=== PATIENT | male | born 1970 | race Caucasian/White ===

== ENCOUNTER → 2017-07-06 | Outpatient (REF) | payer BC ==
[~2017-07-06] MED LIST: ACET50TA PO; ADVI200T PO; CITA40TA PO; CLON2TAB PO; NICO4LOZ8 PO; PERCOCET PO; WELL100T PO
[2017-07-06 13:37] LABS: ALBUMIN 3.9 GM/DL (3.2-5.2); ALBUMIN/GLOBULIN RATIO 0.95 (1.00-1.93); ALKALINE PHOSPHATASE 71 U/L (45-117); ALT/SGPT 59 U/L (12-78); ANION GAP 8 MEQ/L (8-16); AST/SGOT 30 U/L (15-37); BILIRUBIN,TOTAL 0.5 MG/DL (0.2-1.0); BLOOD UREA NITROGEN 12 MG/DL (7-18); CALCIUM LEVEL 9.1 MG/DL (8.5-10.1); CARBON DIOXIDE LEVEL 28 MEQ/L (21-32); CHLORIDE LEVEL 103 MEQ/L (98-107); CHOLESTEROL LEVEL 215 MG/DL (<200); CREATININE FOR GFR 0.77 MG/DL (0.70-1.30); GLOMERULAR FILTRATION RATE > 60.0 (>60); GLUCOSE, FASTING 91 MG/DL (70-105); SODIUM LEVEL 139 MEQ/L (136-145); TRIGLYCERIDES LEVEL 237 MG/DL (<150)
== END ==
LOC: M LABDRAW1 11:12
PROVIDERS: ATTEND Emergency Medicine
DX: I10 Essential (primary) hypertension (principal); E78.2 Mixed hyperlipidemia

== ENCOUNTER → 2018-02-03 | Outpatient (REF) | payer BC | LOC: M SFHCLERA 13:29 | DX: J02.9 Acute pharyngitis, unspecified (principal) ==

== ENCOUNTER → 2018-04-23 | Outpatient (REF) | payer BC | LOC: M SFHCLERA 12:11 | DX: J00 Acute nasopharyngitis [common cold] (principal) | CPT/HCPCS: 87880 ==

== ENCOUNTER → 2020-12-10 | Outpatient (CLI) | payer BC ==
[~2020-12-10] MED LIST changes: -ACET50TA PO; +MAPA500T17 PO; +OXYC1TAB23 PO; -PERCOCET PO
[2020-12-10 13:36] LABS: ALT/SGPT 46 U/L (12-78); BILIRUBIN,TOTAL 0.5 MG/DL (0.2-1.0); BLOOD UREA NITROGEN 13 MG/DL (7-18); CALCIUM LEVEL 9.3 MG/DL (8.5-10.1); CARBON DIOXIDE LEVEL 29 MEQ/L (21-32); CHLORIDE LEVEL 104 MEQ/L (98-107); CHOLESTEROL LEVEL 238 MG/DL (<200); CHOLESTEROL RISK RATIO 5.804 (<5); GLOMERULAR FILTRATION RATE > 60.0 (>60); GLUCOSE, FASTING 102 MG/DL (70-100); HDL CHOLESTEROL 41 MG/DL (>40); LDL CHOLESTEROL 149 MG/DL (<100); NON-HDL-C 197 MG/DL; POTASSIUM SERUM 4.6 MEQ/L (3.5-5.1); SODIUM LEVEL 139 MEQ/L (136-145); TOTAL PROTEIN 7.2 GM/DL (6.4-8.2); TRIGLYCERIDES LEVEL 239 MG/DL (<150)
== END ==
LOC: M WUC 10:16
PROVIDERS: ATTEND Nurse Practitioner Family
DX: Z00.00 Encounter for general adult medical examination without abnormal findings (principal)

== ENCOUNTER → 2021-08-19 | Outpatient (CLI) | payer BC ==
[2021-08-19 12:40] LABS: ALBUMIN 3.7 GM/DL (3.2-5.2); ALT/SGPT 56 U/L (12-78); BILIRUBIN,TOTAL 0.5 MG/DL (0.2-1.0); BLOOD UREA NITROGEN 9 MG/DL (7-18); CALCIUM LEVEL 8.7 MG/DL (8.5-10.1); CARBON DIOXIDE LEVEL 28 MEQ/L (21-32); CHLORIDE LEVEL 108 MEQ/L (98-107); CHOLESTEROL LEVEL 144 MG/DL (<200); CHOLESTEROL RISK RATIO 3.272 (<5); GLOMERULAR FILTRATION RATE > 60.0 (>56); GLUCOSE, FASTING 103 MG/DL (70-100); HDL CHOLESTEROL 44 MG/DL (>40); LDL CHOLESTEROL 73 MG/DL (<100); NON-HDL-C 100 MG/DL; POTASSIUM SERUM 4.5 MEQ/L (3.5-5.1); SODIUM LEVEL 141 MEQ/L (136-145); TOTAL PROTEIN 7.5 GM/DL (6.4-8.2); TRIGLYCERIDES LEVEL 137 MG/DL (<150)
== END ==
LOC: M WUC 10:20
PROVIDERS: ATTEND Nurse Practitioner Family
DX: E78.2 Mixed hyperlipidemia (principal)

== ENCOUNTER → 2021-09-10 | Outpatient (CLI) | payer BC ==
[~2021-09-10] MED LIST changes: +ASPI81TA26 PO; +ATOR40TA75 PO; +LISI10TA22 PO; +METO200T28 PO
== END ==
LOC: M LABSMTC 11:01
PROVIDERS: ATTEND Anesthesiology
DX: Z01.818 Encounter for other preprocedural examination (principal); Z11.52 Encounter for screening for COVID-19

== ENCOUNTER 2021-09-15 09:40 | Day surgery (SDC) | payer BC ==
[~2021-09-15] VITALS: Ht 177.8 cm; Wt 126.6 kg
[~2021-09-15 09:40] MED LIST changes: +NS 1,000 ML IV ONE
--- OUTSIDE RECORDS SUMMARY | 2021-09-15 09:46 | CCD | Continuity of Care Document ---
Author Author Tee CARRERA [facility] Organization Unknown Address [address] [place] [address] Phone [phone] Care Team Providers Care Pharmacy Technician Name Role Phone Melisa Aquino M.D. AUTM [phone] Augusto Ledezma M.D. AUTM [phone] [facility] AUTM [phone] Problems Active Problems Provider Date Essential hypertension Tee Dobbins M.D. Onset: Mixed hyperlipidemia Tee Dobbins M.D. Onset: 12/01 Social History Type Date Description Comments Sex Unknown Tobacco Use Start: Unknown End: Unknown denies cigarette use Tobacco Use Start: Unknown Never Used Smokeless Tobacco ETOH Use Denies alcohol use Tobacco Use Start: Unknown Patient has never smoked Recreational Drug Use Formerly used Marijuana sp oradically Smoking Status Reviewed: 07/22/21 Patient has never smoked Exercise Type/Frequency Exercises sporadically Tattoo/Piercing Tattoo Sun Exposure Use less than 15 SPF Seat Belt/Car Seat Always uses seat belt Smoke Alarms Yes Smoke Alarms Carbon Monoxide Detector: Yes Allergies, Adverse Reactions, Alerts Description No Known Drug Allergies Medications Active Medications SIG Qnty Indications Ordering Provide r Date Tramadol HCL 50mg Tablets take 1 tablet by mouth every 6 hours as needed for pain 28tabs M17.0 Thania Carrera FNP 07/22/2021 Atorvastatin Calcium 40mg Tablets take one tablet by mouth every day for cholesterol 90tabs Thania Franco ch, FNP 12/11/2020 Metoprolol Succinate ER 200mg Tablets ER 24HR one tablet once a day 90tabs I10 Cara Martinez M.D. 06/24/2019 Lisinopril 10mg Tablets take 1 tablet by mouth in the morning for blood pressure 90tabs I10 Thania Carrera FNP 09/10/2015 Aspirin Ec Lo-Dose 81mg Tablets DR 1 po qd 100tabs 786.51 Tee Dobbins M.D. 11/01 Immunizations CPT Code Status Date Vaccine Lot # [id number] Given 04/10/2021 Moderna Sars-(Co vid-19) vaccine, mRNA, LNP-S, PF, 100 mcg/ 0.5 mL [id number] Given 03/13/2021 Moderna Sars-(Co vid-19) vaccine, mRNA, LNP-S, PF, 100 mcg/ 0.5 mL [id number] Refused 07/22/2021 Influenza Virus Vaccine, Jonnie drivalent,multidose vial Vital Signs Date Vital Result Comment 07/22/2021 2:44pm BP Systolic 128 mmHg BP Diastolic 70 mmHg Heart Rate 75 /min Body Temperature 97.0 F Respiratory Rate 17 /min Height 70 inches 5'10" Weight 277.25 lb O2 % BldC Oximetry 98 % Peak Expiratory Flow Rate 539 Estimated Peak Flow Rate [place] Body Weight 166 lb BMI (Body Mass Index) 39.8 kg/m2 12/10/2020 9:32am BP Systolic 123 mmHg BP Diastolic 77 mmHg Heart Rate 67 /min Body Temperature 97.6 F Respiratory Rate 16 /min Height 70 inches 5'10" Weight 272.12 lb O2 % BldC Oximetry 98 % Peak Expiratory Flow Rate 541 Estimated Peak Flow Rate [place] Body Weight 166 lb BMI (Body Mass Index) 39.0 kg/m2 Results Description No Information Available Procedures Date Code Description Status 07/22/2021 26465 Office/Outpatient Established Lo w MDM 20-29 Min Completed Medical Devices Description No Information Available Encounters Type Date Location Provider Dx Diagnosis Office Visit 07/22/2021 2:45p Main Office Thania Carrera FNP M17.0 Bilateral primary osteoarthritis of knee E78.2 Mixed hyperlipidemia Assessments Date Code Description Provider 07/22/2021 M17.0 Bilateral primary osteoarthritis of knee Thania Carrera FNP 07/22/2021 E78.2 Mixed hyperlipidemia Maryan Carrera FNP Plan of Treatment 07/22/2021 - Thania Carrera FNP* M17.0 Bilateral primary osteoarthritis of knee* New Medication:* Tramadol HCL 50 mg - take 1 tablet by mouth every 6 hours as needed for pain * Comments:* left worse than right, using NSAIDS without relief. * E78.2 Mixed hyperlipidemia* Comments:* continue statin, recheck lipids Functional Status Functional Condition Comment Date Status Glasses Active Independent with all ADL's Activ e Independent with all IADL's Acti ve Mental Status Mental Condition Comment Date Status None Active Referrals Description No Information Available
--- OUTSIDE RECORDS SUMMARY | 2021-09-15 09:46 | CCD | Continuity of Care Document ---
Author Author Tee CARRERA [facility] Organization Unknown Address [address] [place] [address] Phone [phone] Care Team Providers Care Pill Packer Name Role Phone Melisa Aquino M.D. AUTM [phone] Augusto Ledezma M.D. AUTM [phone] [facility] AUTM [phone] Problems Active Problems Provider Date Essential hypertension [...] CPT Code Status Date Vaccine Lot # [id number] Given 04/10/2021 Moderna Sars-(Co vid-19) vaccine, mRNA, LNP-S, PF, 100 mcg/ 0.5 mL [id number] Given 03/13/2021 Moderna Sars-(Co vid-19) vaccine, mRNA, LNP-S, PF, 100 mcg/ 0.5 mL [id number] Refused 07/22/2021 Influenza Virus Vaccine, Jonnie drivalent,multidose vial Vital Signs Date Vital Result Comment 07/22/2021 2:44pm BP Systolic 128 mmHg BP Diastolic 70 mmHg Heart Rate 75 /min Body Temperature 97.0 F Respiratory Rate 17 /min Height 70 inches 5'10" Weight 277.25 lb O2 % BldC Oximetry 98 % Peak Expiratory Flow Rate 539 Estimated Peak Flow Rate [place] Body Weight 166 lb BMI (Body Mass Index) 39.8 kg/m2 12/10/2020 9:32am BP Systolic 123 mmHg BP Diastolic 77 mmHg Heart Rate 67 /min Body Temperature 97.6 F Respiratory Rate 16 /min Height 70 inches 5'10" Weight 272.12 lb O2 % BldC Oximetry 98 % Peak Expiratory Flow Rate 541 Estimated Peak Flow Rate [place] Body Weight 166 lb BMI (Body Mass Index) 39.0 kg/m2 Results Description No Information Available Procedures Date Code Description Status 07/22/2021 63553 Office/Outpatient Established Lo w MDM 20-29 Min [...]
--- OUTSIDE RECORDS SUMMARY | 2021-09-15 09:46 | CCD | Continuity of Care Document ---
Author Author Tee WALLS Organization Unknown Address [address], [address] [place] [address] Phone [phone] Care Team Providers Care Procurement Manager Name Role Phone Thania Carrera N.P.M [phone] Problems Active Problems Provider Date Essential hypertension Piotr Walls DO Onset: Social History Type Date Description Comments Sex Unknown ETOH Use Denies alcohol use Tobacco Use Start: Unknown Denies Smoking Recreational Drug Use Denies Drug Use Allergies, Adverse Reactions, Alerts Description No Known Drug Allergies Medications Active Medications SIG Qnty Indications Ordering Provide r Date Aspirin 81mg Tablets DR 1 [place] Unknown Lisinopril 10mg Tablets 1 by mouth every day Unknown Atorvastatin Calcium 40mg Tablets 1 by mouth every day Unknown Metoprolol Succinate ER 200mg Tablets ER 24HR 1 by mouth every day Unknown 0000/0 000 Immunizations Description No Information Available Vital Signs Date Vital Result Comment 07/29/2021 2:22pm BP Systolic 112 mmHg BP Diastolic 72 mmHg Body Temperature 98.3 F Height 70 inches 5'10" Weight 278.00 lb BMI (Body Mass Index) 39.9 kg/m2 [place] Body Weight 166 lb Weight 126.101 kg BSA (Body Surface Area) 2.40 m2 Results Description No Information Available Procedures Description No Information Available Medical Devices Description No Information Available Encounters Description No Information Available Assessments Date Code Description Provider 07/29/2021 Z12.11 Encounter for screening for yan gnant neoplasm of colon Piotr Walls DO Plan of Treatment Future Appointment(s):* 09/27/2021 10:30 am - JUAN Bruce at [facility] * 09/15/2021 11:10 am - Piotr Walls DO at [facility] 07/29/2021 - Piotr Walls DO* Z12.11 Encounter for screening for malignant neoplasm of colon* Comments:* 51 y/o male presents for screening colonoscopy. Risks and benefits include, but are not limited to, bleeding, infection, and perforation. He understands the risks, and elects to proceed with procedure. Functional Status Description No Information Available Mental Status Description No Information Available Referrals Refer to Reason for Referral Status Appt Date Piotr Walls D.O. SCHEDULE COLONOSCOPY Scheduled [address] [place] [id number] [phone]
--- OUTSIDE RECORDS SUMMARY | 2021-09-15 09:46 | CCD | Continuity of Care Document ---
Author Author Tee WALLS Organization Unknown Address [address] [place] [address] [address] [place] [address] Phone [phone] Care Team Providers Care Ux Engineer Name Role Phone SantoshjamirThania N.P. AUTM [phone] Problems Active Problems Provider Date Essential hypertension Piotr Walls DO Onset: Social History Type Date Description Comments Sex Unknown ETOH Use Denies alcohol use Tobacco Use Start: Unknown Denies Smoking Recreational Drug Use Denies Drug Use Allergies, Adverse Reactions, Alerts Description No Known Drug Allergies Medications Active Medications SIG Qnty Indications Ordering Provide r Date Aspirin 81mg Tablets DR Santana hernández day Unknown Lisinopril 10mg Tablets 1 by mouth every day Unknown Atorvastatin Calcium 40mg Tablets 1 by mouth every day Unknown Metoprolol Succinate ER 200mg Tablets ER 24HR 1 by mouth every day Unknown 00/00/0 000 Immunizations Description No Information Available Vital Signs Date Vital Result Comment 07/29/2021 2:22pm BP Systolic 112 mmHg BP Diastolic 72 mmHg Body Temperature 98.3 F Height 70 inches 5'10" Weight 278.00 lb BMI (Body Mass Index) 39.9 kg/m2 [place] Body Weight 166 lb Weight 126.101 kg BSA (Body Surface Area) 2.40 m2 Results Description No Information Available Procedures Description No Information Available Medical Devices Description No Information Available Encounters Description No Information Available Assessments Description No Information Available Plan of Treatment No Information Available Functional Status Description No Information Available Mental Status Description No Information Available Referrals Refer to Reason for Referral Status Appt Date Piotr Walls D.O. SCHEDULE COLONOSCOPY Scheduled [address] [address] [address] [place], [place] [address] [phone]
--- OUTSIDE RECORDS SUMMARY | 2021-09-15 09:46 | CCD ---
Author Author [facility] Organization [facility] Address Unknown Phone Unavailable Care Team Providers Care Printed Circuit Board Panels Deburrer Name Role Phone Yahaira BARBER MD Unavailable Unavailable Yahaira BARBER MD Unavailable Unavailable Yahaira BARBER MD Unavailable Unavailable Yahaira BARBER MD Unavailable Unavailable Yahaira BARBER MD Unavailable Unavailable Yahaira BARBER MD Unavailable Unavailable Yahaira BARBER MD Unavailable Unavailable Yahaira BARBER MD Unavailable Unavailable Yahaira BARBER MD Unavailable Unavailable Yahaira BARBER MD Unavailable Unavailable Yahaira BARBER MD Unavailable Unavailable Yahaira BARBER MD Unavailable Unavailable Yahaira BARBER MD Unavailable Unavailable Yahaira BARBER MD Unavailable Unavailable Yahaira BARBER MD Unavailable Unavailable Yahaira BARBER MD Unavailable Unavailable Yahaira BARBER MD Unavailable Unavailable Yahaira BARBER MD Unavailable Unavailable Yahaira BARBER MD Unavailable Unavailable Yahaira BARBER MD Unavailable Unavailable Yahaira BARBER MD Unavailable Unavailable Yahaira BARBER MD Unavailable Unavailable Yahaira BARBER MD Unavailable Unavailable Yahaira BARBER MD Unavailable Unavailable Yahaira BARBER MD Unavailable Unavailable Yahaira BARBER MD Unavailable Unavailable Yahaira BARBER MD Unavailable Unavailable Yahaira BARBER MD Unavailable Unavailable Yahaira BARBER MD Unavailable Unavailable Yahaira BARBER MD Unavailable Unavailable Yahaira BARBER MD Unavailable Unavailable Yahaira BARBER MD Unavailable Unavailable Yahaira BARBER MD Unavailable Unavailable Yahaira BARBER MD Unavailable Unavailable Yahaira BARBER MD Unavailable Unavailable Yahaira BARBER MD Unavailable Unavailable Yahaira BARBER MD Unavailable Unavailable Yahaira BARBER MD Unavailable Unavailable Yahaira BARBER MD Unavailable Unavailable Yahaira BARBER MD Unavailable Unavailable Yahaira BARBER MD Unavailable Unavailable Yahaira BARBER MD Unavailable Unavailable Yahaira BARBER MD Unavailable Unavailable Yahaira BARBER MD Unavailable Unavailable Yahaira BARBER MD Unavailable Unavailable Yahaira BARBER MD Unavailable Unavailable Yahaira BARBER MD Unavailable Unavailable Yahaira BARBER MD Unavailable Unavailable Yahaira BARBER MD Unavailable Unavailable Yahaira BARBER MD Unavailable Unavailable Yahaira BARBER MD Unavailable Unavailable Yahaira BARBER MD Unavailable Unavailable Yahaira BARBER MD Unavailable Unavailable Yahaira BARBER MD Unavailable Unavailable Yahaira BARBER MD Unavailable Unavailable Yahaira BARBER MD Unavailable Unavailable Yahaira BARBER MD Unavailable Unavailable Yahaira BARBER MD Unavailable Unavailable Yahaira BARBER MD Unavailable Unavailable Yahaira BARBER MD Unavailable Unavailable Yahaira BARBER MD Unavailable Unavailable Yahaira BARBER MD Unavailable Unavailable Yahaira BARBER MD Unavailable Unavailable Yahaira BARBER MD Unavailable Unavailable Yahaira BARBER MD Unavailable Unavailable Yahaira BARBER MD Unavailable Unavailable Yahaira BARBER MD Unavailable Unavailable Yahaira BARBER MD Unavailable Unavailable Yahaira BARBER MD Unavailable Unavailable Yahaira BARBER MD Unavailable Unavailable Yahaira BARBER MD Unavailable Unavailable Yahaira BARBER MD Unavailable Unavailable Yahaira BARBER MD Unavailable Unavailable Feola, T Elizabeth PA Unavailable Unavailable Feola, T Elizabeth PA Unavailable Unavailable Feola, T Elizabeth PA Unavailable Unavailable Feola, T Elizabeth PA Unavailable Unavailable Feola, T Elizabeth PA Unavailable Unavailable Feola, T Elizabeth PA Unavailable Unavailable Feola, T Elizabeth PA Unavailable Unavailable Feola, T Elizabeth PA Unavailable Unavailable Feola, T Elizabeth PA Unavailable Unavailable Feola, T Elizabeth PA Unavailable Unavailable Feola, T Elizabeth PA Unavailable Unavailable Feola, T Elizabeth PA Unavailable Unavailable Feola, T Elizabeth PA Unavailable Unavailable Feola, T Elizabeth PA Unavailable Unavailable Feola, T Elizabeth PA Unavailable Unavailable Feola, T Elizabeth PA Unavailable Unavailable Feola, T Elizabeth PA Unavailable Unavailable Feola, T Elizabeth PA Unavailable Unavailable Feola, T Elizabeth PA Unavailable Unavailable Feola, T Elizabeth PA Unavailable Unavailable Feola, T Elizabeth PA Unavailable Unavailable Feola, T Elizabeth PA Unavailable Unavailable Feola, T Elizabeth PA Unavailable Unavailable Feola, T Elizabeth PA Unavailable Unavailable Feola, T Elizabeth PA Unavailable Unavailable Feola, T Elizabeth PA Unavailable Unavailable Feola, T Elizabeth PA Unavailable Unavailable Feola, T Elizabeth PA Unavailable Unavailable Feola, T Elizabeth PA Unavailable Unavailable Feola, T Elizabeth PA Unavailable Unavailable Feola, T Elizabeth PA Unavailable Unavailable Feola, T Elizabeth PA Unavailable Unavailable Feola, T Elizabeth PA Unavailable Unavailable Feola, T Elizabeth PA Unavailable Unavailable Feola, T Elizabeth PA Unavailable Unavailable Feola, T Elizabeth PA Unavailable Unavailable Feola, T Elizabeth PA Unavailable Unavailable Feola, T Elizabeth PA Unavailable Unavailable Feola, T Elizabeth PA Unavailable Unavailable Feola, T Elizabeth PA Unavailable Unavailable Feola, T Elizabeth PA Unavailable Unavailable Pleskach, Thania SUPERVISING CHEF Unavailable Unavailable Pleskach, Thania SUPERVISING CHEF Unavailable Unavailable Pleskach, Thania SUPERVISING CHEF Unavailable Unavailable Pleskach, Thania SUPERVISING CHEF Unavailable Unavailable Pleskach, Thania SUPERVISING CHEF Unavailable Unavailable Pleskach, Thania SUPERVISING CHEF Unavailable Unavailable Pleskach, Thania SUPERVISING CHEF Unavailable Unavailable Pleskach, Thania SUPERVISING CHEF Unavailable Unavailable Pleskach, Thania SUPERVISING CHEF Unavailable Unavailable Pleskach, Thania SUPERVISING CHEF Unavailable Unavailable Pleskach, Thania SUPERVISING CHEF Unavailable Unavailable Pleskach, Thania SUPERVISING CHEF Unavailable Unavailable Pleskach, Thania SUPERVISING CHEF Unavailable Unavailable Pleskach, Thania SUPERVISING CHEF Unavailable Unavailable Pleskach, Thania SUPERVISING CHEF Unavailable Unavailable Pleskach, Thania SUPERVISING CHEF Unavailable Unavailable Pleskach, Thania SUPERVISING CHEF Unavailable Unavailable Pleskach, Thania SUPERVISING CHEF Unavailable Unavailable Pleskach, Thania SUPERVISING CHEF Unavailable Unavailable Pleskach, Thania SUPERVISING CHEF Unavailable Unavailable Pleskach, Thania SUPERVISING CHEF Unavailable Unavailable Pleskach, Thania SUPERVISING CHEF Unavailable Unavailable Pleskach, Thania SUPERVISING CHEF Unavailable Unavailable Pleskach, Thania SUPERVISING CHEF Unavailable Unavailable Pleskach, Thania SUPERVISING CHEF Unavailable Unavailable Pleskach, Thania SUPERVISING CHEF Unavailable Unavailable Pleskach, Thania SUPERVISING CHEF Unavailable Unavailable Pleskach, Thania SUPERVISING CHEF Unavailable Unavailable Pleskach, Thania SUPERVISING CHEF Unavailable Unavailable Pleskach, Thania SUPERVISING CHEF Unavailable Unavailable Pleskach, Thania SUPERVISING CHEF Unavailable Unavailable Pleskach, Thania SUPERVISING CHEF Unavailable Unavailable Pleskach, Thania SUPERVISING CHEF Unavailable Unavailable Pleskach, Thania SUPERVISING CHEF Unavailable Unavailable Pleskach, Thania SUPERVISING CHEF Unavailable Unavailable Pleskach, Thania SUPERVISING CHEF Unavailable Unavailable Pleskach, Thania SUPERVISING CHEF Unavailable Unavailable Pleskach, Thania SUPERVISING CHEF Unavailable Unavailable Pleskach, Thania SUPERVISING CHEF Unavailable Unavailable Pleskach, Thania SUPERVISING CHEF Unavailable Unavailable Pleskach, Thania SUPERVISING CHEF Unavailable Unavailable Pleskach, Thania SUPERVISING CHEF Unavailable Unavailable Pleskach, Thania SUPERVISING CHEF Unavailable Unavailable Pleskach, Thania SUPERVISING CHEF Unavailable Unavailable Kopko, A Wesley MD Unavailable Unavailable Kopko, A Wesley MD Unavailable Unavailable Kopko, A Wesley MD Unavailable Unavailable Kopko, A Wesley MD Unavailable Unavailable Kopko, A Wesley MD Unavailable Unavailable Kopko, A Wesley MD Unavailable Unavailable Kopko, A Wesley MD Unavailable Unavailable Kopko, A Wesley MD Unavailable Unavailable Kopko, A Wesley MD Unavailable Unavailable Kopko, A Wesley MD Unavailable Unavailable Kopko, A Wesley MD Unavailable Unavailable Kopko, A Wesley MD Unavailable Unavailable Kopko, A Wesley MD Unavailable Unavailable Kopko, A Wesley MD Unavailable Unavailable Kopko, A Wesley MD Unavailable Unavailable Kopko, A Wesley MD Unavailable Unavailable Kopko, A Wesley MD Unavailable Unavailable Kopko, A Wesley MD Unavailable Unavailable Kopko, A Wesley MD Unavailable Unavailable Kopko, A Wesley MD Unavailable Unavailable Kopko, A Wesley MD Unavailable Unavailable Kopko, A Wesley MD Unavailable Unavailable Kopko, A Wesley MD Unavailable Unavailable Kopko, A Wesley MD Unavailable Unavailable Kopko, A Wesley MD Unavailable Unavailable Kopko, A Wesley MD Unavailable Unavailable Kopko, A Wesley MD Unavailable Unavailable Kopko, A Wesley MD Unavailable Unavailable Kopko, A Wesley MD Unavailable Unavailable Kopko, A Wesley MD Unavailable Unavailable Kopko, A Wesley MD Unavailable Unavailable Kopko, A Wesley MD Unavailable Unavailable Kopko, A Wesley MD Unavailable Unavailable Kopko, A Wesley MD Unavailable Unavailable Kopko, A Wesley MD Unavailable Unavailable Kopko, A Wesley MD Unavailable Unavailable Kopko, A Wesley MD Unavailable Unavailable Kopko, A Wesley MD Unavailable Unavailable Kopko, A Wesley MD Unavailable Unavailable Kopko, A Wesley MD Unavailable Unavailable Kopko, A Wesley MD Unavailable Unavailable Kopko, A Wesley MD Unavailable Unavailable Kopko, A Wesley CARDONA Unavailable Unavailable Kopko, A Wesley CARDONA Unavailable Unavailable Kopko, A Wesley CARDONA Unavailable Unavailable Kopko, A Wesley CARDONA Unavailable Unavailable Kopko, A Wesley CARDONA Unavailable Unavailable Kopko, A Wesley CARDONA Unavailable Unavailable Kopko, A Wesley MD Unavailable Unavailable Kopko, A Wesley MD Unavailable Unavailable Kopko, A Wesley MD Unavailable Unavailable Kopko, A Wesley MD Unavailable Unavailable Kopko, A Wesley MD Unavailable Unavailable Kopko, A Wesley MD Unavailable Unavailable Kopko, A Wesley MD Unavailable Unavailable Kopko, A Wesley MD Unavailable Unavailable Kopko, A Wesley MD Unavailable Unavailable Kopko, A Wesley MD Unavailable Unavailable Kopko, A Wesley MD Unavailable Unavailable Kopko, A Wesley MD Unavailable Unavailable Kopko, A Wesley MD Unavailable Unavailable Kopko, A Wesley MD Unavailable Unavailable Kopko, A Wesley MD Unavailable Unavailable Kopko, A Wesley MD Unavailable Unavailable Kopko, A Wesley CARDONA Unavailable Unavailable Kopko, A Wesley CARDONA Unavailable Unavailable Kopko, A Wesley CARDONA Unavailable Unavailable Kopko, A Wesley CARDONA Unavailable Unavailable Kopko, A Wesley CARDONA Unavailable Unavailable Kopko, A Wesley Unavailable Unavailable Kopko, A Wesley CARDONA Unavailable Unavailable Kopko, A Wesley CARDONA Unavailable Unavailable Kopko, Skip Olson MD Unavailable Unavailable Kopko, A Wesley CARDONA Unavailable Unavailable Kopko, A Wesley CARDONA Unavailable Unavailable Kopko, A Wesley Unavailable Unavailable Kopko, A Wesley CARDONA Unavailable Unavailable DARON PIERCE MD Unavailable Unavailable DARON PIERCE MD Unavailable Unavailable DARON PIERCE MD Unavailable Unavailable DARON PIERCE MD Unavailable Unavailable DARON PIERCE MD Unavailable Unavailable DARON PIERCE MD Unavailable Unavailable DARON PIERCE MD Unavailable Unavailable DARON PIRECE MD Unavailable Unavailable DARON PIERCE MD Unavailable Unavailable DARON PIERCE MD Unavailable Unavailable DARON PIERCE MD Unavailable Unavailable DARON PIERCE MD Unavailable Unavailable DARON PIERCE MD Unavailable Unavailable DARON PIERCE MD Unavailable Unavailable DARON PIERCE MD Unavailable Unavailable DARON PIERCE MD Unavailable Unavailable BLACK, DARON CHRISTOPHER MD Unavailable Unavailable DARON PIERCEOPHER Unavailable Unavailable DARON PIERCE MD Unavailable Unavailable DARON PIERCE MD Unavailable Unavailable DARON PIERCE MD Unavailable Unavailable DARON PIERCE MD Unavailable Unavailable DARON PIERCE MD Unavailable Unavailable DARON PIERCE MD Unavailable Unavailable DARON PIERCE MD Unavailable Unavailable DARON PIERCE MD Unavailable Unavailable DARON PIERCE MD Unavailable Unavailable DARON PIERCE MD Unavailable Unavailable DARON PIERCE MD Unavailable Unavailable DARON PIERCE MD Unavailable Unavailable DARON PIERCE MD Unavailable Unavailable DARON PIERCE MD Unavailable Unavailable DARON PIERCE MD Unavailable Unavailable DARON PIERCE MD Unavailable Unavailable DARON PIERCE MD Unavailable Unavailable DARON PIERCE MD Unavailable Unavailable DARON PIERCE MD Unavailable Unavailable DARON PIERCE MD Unavailable Unavailable DARON PIERCE MD Unavailable Unavailable DARON PIERCE MD Unavailable Unavailable DARON PIERCE MD Unavailable Unavailable DARON PIERCE MD Unavailable Unavailable DARON PIERCE MD Unavailable Unavailable DARON PIERCE MD Unavailable Unavailable DARON PIERCE MD Unavailable Unavailable DARON PIERCE MD Unavailable Unavailable DARON PIERCE MD Unavailable Unavailable DARON PIERCE MD Unavailable Unavailable DARON PIERCE MD Unavailable Unavailable DARON PIERCE MD Unavailable Unavailable DARON PIERCE MD Unavailable Unavailable DARON PIERCE MD Unavailable Unavailable DARON PIERCE MD Unavailable Unavailable DARON PIERCE MD Unavailable Unavailable DARON PIERCE MD Unavailable Unavailable Maryan Workman Christopher PA-C Unavailable Unavailable Maryan Workman Christopher PA-C Unavailable Unavailable Maryan Workman Christopher PA-C Unavailable Unavailable Maryan Workman Christopher PA-C Unavailable Unavailable Maryan Workman Christopher PA-C Unavailable Unavailable Maryan Workman Christopher PA-C Unavailable Unavailable Maryan Workman Christopher PA-C Unavailable Unavailable Maryan Workman Christopher PA-C Unavailable Unavailable Maryan Workman Christopher PA-C Unavailable Unavailable Workman, M Christopher PA-C Unavailable Unavailable Workman, M Christopher PA-C Unavailable Unavailable Workman, M Christopher PA-C Unavailable Unavailable Workman, M Christopher PA-C Unavailable Unavailable Workman, M Christopher PA-C Unavailable Unavailable Workman, M Christopher PA-C Unavailable Unavailable Workman, M Christopher PA-C Unavailable Unavailable Workman, M Christopher PA-C Unavailable Unavailable Workman, M Christopher PA-C Unavailable Unavailable Workman, M Christopher PA-C Unavailable Unavailable Workman, M Christopher PA-C Unavailable Unavailable Workman, M Christopher PA-C Unavailable Unavailable Workman, M Christopher PA-C Unavailable Unavailable Workman, M Christopher PA-C Unavailable Unavailable Workman, M Christopher PA-C Unavailable Unavailable Workman, M Christopher PA-C Unavailable Unavailable Workman, M Christopher PA-C Unavailable Unavailable Re-disclosure Warning The records that you are about to access may contain information from federally-assisted alcohol or drug abuse programs. If such information is present, then the following federally mandated warning applies: This information has been disclosed to you from records protected by federal confidentiality rules (42 CFR part 2). The federal rules prohibit you from making any further disclosure of this information unless further disclosure is expressly permitted by the written consent of the person to whom it pertains or as otherwise permitted by 42 CFR part 2. A general authorization for the release of medical or other information is NOT sufficient for this purpose. The Federal rules restrict any use of the information to criminally investigate or prosecute any alcohol or drug abuse patient.The records that you are about to access may contain highly sensitive health information, the redisclosure of which is protected by Article 27-F of the [facility] Public Health law. If you continue you may have access to information: Regarding HIV / AIDS; Provided by facilities licensed or operated by the [facility] Office of Mental Health; or Provided by the [facility] Office for People With Developmental Disabilities. If such information is present, then the following [facility] mandated warning applies: This information has been disclosed to you from confidential records which are protected by state law. State law prohibits you from making any further disclosure of this information without the specific written consent of the person to whom it pertains, or as otherwise permitted by law. Any unauthorized further disclosure in violation of state law may result in a fine or fdc sentence or both. A general authorization for the release of medical or other information is NOT sufficient authorization for further disc losure. Family History Family Member Name Family Member Gender Family Member Status Date o f Status Description Data Source(s) Unknown Female Problem [facility] Unknown Female Problem [facility] Unknown Unknown Problem [facility] Encounters Encounter Providers Location Date Indications Data Source(s ) Outpatient Attender: Thaniajessica Carrera [facility] Main Office 07/22/2021 0 2:45:00 PM EDT [facility] ([facility] Outpatient Attender: Elizabeth Vallesender: Warner smith PA-C 05/27/2021 12:45:40 PM EDT - 05/27/2021 01:23:05 PM EDT [facility] ([facility]) Outpatient Attender: Wesley Honeycutt MDReferrer: WARNER MONROE MD 08/10/2020 11:46:17 AM EDT [facility] Recurring Patient Attender: MARIA DEL CARMEN BARBER MDReferrer: INES PIERCE MD 08/10/2020 10:53:36 AM EDT [facility] Recur[facility] Patient Attender: MARIA DEL CARMEN BARBER MDReferrer: INES PIERCE MD 08/10/2020 07:14:11 AM EDT [facility] Immunizations Vaccine Date Status Description Data Source(s) New in 2012. IIV4 07/22/2021 02:58:00 PM EDT completed [facility] ([facility] Moderna Sars-(Covid-19) vaccine, mRNA, LNP-S, PF, 100 mcg/ 0.5 mL 04/10/2021 12:00:00 AM EDT completed [facility] ([facility] COVID-19 VACCINE Moderna 04/10/2021 12:00:00 AM EDT completed [facility] Vaccine Series Complete: YESThis Data wa s Submitted to [facility] Via [employer]. Moderna Sars-(Covid-19) vaccine, mRNA, LNP-S, PF, 100 mcg/ 0.5 mL 03/13/2021 12:00:00 AM EDT completed [facility] COVID-19 VACCINE Moderna 03/13/2021 12:00:00 AM EDT completed [facility] Vaccine Series Complete: NOThis Data was Submitted to [facility] Via [employer]. Medications Medication Brand Name Start Date Product Form Dose Route Admi nistrative Instructions Pharmacy Instructions Status Indications Reaction Description Data Source(s) tramadol hydrochloride 50 MG Oral Tablet Tramadol HCL 07/22/2021 12:00:00 AM EDT ORAL active [facility] ([facility] atorvastatin 40 MG Oral Tablet Atorvastatin Calcium 12/11/2020 1 2:00:00 AM EST ORAL active [facility] ( [facility] Insurance Providers Payer name Policy type / Coverage type Policy ID Covered libertarian ID Covered libertarian's relationship to brantley Policy [place] Plan Information BS [place] Medigap Part B [id number] Family Dependent EXCELLUS BCBS [id number] Spo [id number] BS [place] Commercial [id number] Self Blue Cross Blue Shield P [id number] SELF [id number] Blue Cross Blue Shield P [id number] SPOUSE [id number] [employer] Blue Cross and Blue Shield [place] Blue Cross/B lue Shield [id number] Spouse [id number] [facility] (O) [id number] Family Dependent [id number] BS Of [place] Health Maintenance Organization (O) [id number] Family Dependent EXCELLUS BCBS B [id number] P [id number] BC/BS OF [place] B [id number] P WM [id number] BC/BS Of [place] Commercial [id number] Family Depende nt BCBS OF [place] 020/520 [id number] SP [id number] BCBS OF [facility] [id number] WI2 [id number] BCBS OF [place] 020/520 [id number] [place]2 [id number] BS Of [facility] Health [place] Organization [place] [id number] Family Dependent [id number] [facility] [id number] 01 [id number] BCBS [facility] [address] 121/621 [id number] WI2 [id number] Problems, Conditions, and Diagnoses Code Display Name Description Problem Type Effective Dates Data Source(s) [id number] Essential hypertension Essential hypertension Problem 07/29/2021 12:00:00 AM EDT [facility] ([facility], ) Surgeries/Procedures Procedure Description Date Indications Data Source(s) OFFICE OUTPATIENT VISIT 15 MINUTES 07/22/2021 12:00:00 AM EDT [facility] ([facility] Results ID Date Data Source [id number] 09/10/2021 10:55:00 AM EDT [facility] Name Value Range Interpretation Code Description Data Myrna rce(s) Supporting Document(s) SARS-CoV-2 (COVID-19) RNA [Presence] in Respiratory specimen by TIMO with probe detection Not Detected [facility] This lab was ordered by [facility] and reported by [facility]. ID Date Data Source [id number] 08/19/2021 10:21:00 AM EDT [facility] ([facility] Name Value Range Interpretation Code Description Data Myrna rce(s) Supporting Document(s) Glucose, Fasting 103 mg/dL 70-100 [facility] Blood Urea Nitrogen 9 mg/dL 7-18 [facility] Creatinine For GFR 0.80 mg/dL 0.70-1.30 [facility] ([facility] Sodium Level 141 meq/L 136-145 [facility] Glomerular Filtration Rate Laboratory test result [facility] <content>Units are mL/min/1.73 m2</content>
<content></content>
<content>Chronic Kidney Disease Staging per NKF:</content>
<content></content>
<content>Stage I & II GFR >=60 Normal to Mildly Decreased</content>
<content>Stage III GFR 30- 59 Moderately Decreased</content>
<content>Stage IV GFR 15-29 Severely Decreased</content>
<content>Stage V GFR <15 Very Little GFR Left</content>
<content>ESRD GFR <15 on PUBLIC RELATIONS PROFESSIONAL</content>
<content></content> Potassium Serum 4.5 meq/L 3.5-5.1 [facility] Chloride Level 108 meq/L 98-107 [facility] Carbon Dioxide Level 28 meq/L 21-32 [facility] ([facility] Anion Gap 5 meq/L 8-16 [facility] Alt/SGPT 56 U/L 12-78 [facility] Ast/Sgot 25 U/L 7-37 [facility] Calcium Level 8.7 mg/dL 8.5-10.1 [facility] ([facility] Bilirubin,Total 0.5 mg/dL 0.2-1.0 [facility] ([facility] Total Protein 7.5 GM/DL 6.4-8.2 [facility] ([facility] Alkaline Phosphatase 68 U/L 45-117 [facility] ([facility] Albumin/Globulin Ratio 1.0 [facility] ([facility] Albumin 3.7 GM/DL 3.2-5.2 [facility] ID Date Data Source [id number] 08/19/2021 10:21:00 AM EDT [facility] ([facility] Name Value Range Interpretation Code Description Data Myrna rce(s) Supporting Document(s) Cholesterol Level 144 mg/dL [facility] ([facility] Triglycerides Level 137 mg/dL [facility] LDL Cholesterol 73 mg/dL [facility] Non-HDL-C 100 mg/dL [facility] HDL Cholesterol 44 mg/dL [facility] Cholesterol Risk Ratio 3.272 [facility] ID Date Data Source [id number] 07/26/2021 12:00:00 AM EDT [facility] Name Value Range Interpretation Code Description Data Myrna rce(s) Supporting Document(s) SARS coronavirus 2 RNA [Presence] in Res piratory specimen by TIMO with probe detection Not detected [facility] This lab was ordered by PABLO/ MARCELA tapia nd reported by [employer]. ID Date Data Source [id number] 02/09/2021 12:00:00 AM EDT [facility] Name Value Range Interpretation Code Description Data Myrna rce(s) Supporting Document(s) SARS-CoV2 Rapid Antigen Negative [facility] and reported by [facility] ID Date Data Source [id number] 12/25/2020 12:00:00 AM EST [facility] Name Value Range Interpretation Code Description Data Myrna rce(s) Supporting Document(s) SARS-CoV2 Rapid Antigen Negative [facility] This lab was ordered by [facility] and reported by [facility]. ID Date Data Source [id number] 08/10/2020 11:46:17 AM EDT [facility] PCName: Warner SwansonDOB: 1970Provider: Sahara Honeycutt: 08/10/2020 Reason For VisitChristopher Swanson is here today for Bilateral Knees. Warner Swanson is an established patient here for follow up. . ([employer]). Patient is working at this time at regular duty. AssessmentHistory of Present Illness:Mr. Swanson is a very pleasant patient with a several week history of progressive bilateral R>L knee pain. There is no precipitating event or trauma. Works on his feet all day. Right knee pain is more anterolateral and sharp. The pain is located predominantly in the medial and anterior aspect of the left knee aggravated by weight bearing. HAs swelling with activity. Walking even short distances can be painful. The patient has taken NSAIDs Tylenol Arthritis strength , , without sufficient relief of symptoms. Quality of life is negatively impacted with daily tasks being more difficult. Has more pain after working.Physical Examination:General: Patient appears well developed, well nourished, and in no acute distress. Patient is oriented to person, place, and time. The patient's mood is appropriate to situation. The patient's coordination is normal.Body Habitus: Obese Gait: The patient walks with antalgic gait.Right Knee: Negative effusionLigaments stable to varus/valgus stress at full extension and 30 degrees. Negative anterior drawer.AROM Right: 0-125 degreesPositive patellofemoral crepitus, Negative Patellar Grind lateral joint line tendernessLeft Knee: Negative effusionLigaments stable to varus/valgus stress at full extension and 30 degrees. Negative anterior drawer.AROM Left: 0-125 degrees Negative patellofemoral crepitus, Negative Patellar Grind medial joint line tendernessNeuro: Sensation is intact to light touch in the superficial peroneal, deep peroneal, and tibial nerve distributions bilaterally. Muscle tone appears symmetrical and within normal limits.Peripheral vasculature: Bilateral 2+ dorsal pedis pulses; bilateral 2+ posterior tibial pulses; no lower extremity edemaSkin: Skin appears to be intact in both upper and lower extremities. There does not appear to be any ulceration or other non-healing wounds.Radiographs:4 view X-rays were ordered, obtained, and interpreted on today of the right and left knee.There are mild right medial degenerative changes of the knee with some early joint space narrowing subchondral sclerosis. There are moderate left medial degenerative changes of the knee with joint space narrowing, subchondral sclerosis . There is no radiographic evidence of AVN, fracture, or dislocation. Assessment/Plan:The patient has primary osteoarthritis of the knee. Symptoms are mild and would consider MRI if not improving. - I discussed the diagnosis and treatment options in detail with the patient - Recommended taking Tylenol and/or NSAIDS. Can prescribe if requested.- I have recommended physical therapy/exercise and activity modification. Discussed the benefits of weight loss with the patient in relation to joint stress, pain, overall health, and eventual longevity of joint replacement. Discussed best method of weight loss includes planning to reduce caloric intake and increase exercise. Should these fail, the patient may be a candidate for a cortisone injection. - I discussed with the patient that I expect them to obtain relief from over the counter me dications and therapy. If they are not improving as expected I recommended that they call to schedule follow up for injection or request prescription NSAIDs.. Plan 1. X-Ray I Knee - 4+ views (XRays were ordered, obtained and interpreted today in the office. Indication: pain/dysfunction.); Status:Complete; Done: [id number] Perform:SOS14 (General); Due:[id number]; Last Updated By:Tere Mckee; 08/10/2020 11:18:25 AM;Ordered; For:Pain in both knees; Ordered By:Wesley Honeycutt;Weight Bearing Status : Weight bearingLaterality: : Bilateral Signatures Electronically signed by : Wesley Honeycutt M.D.; Aug 10 2020 11:46AM EST (Author) Name Value Range Interpretation Code Description Data Myrna rce(s) Supporting Document(s) Procedure Social History Code Duration Value Status Description Data Source(s ) Smoking 07/22/2021 12:00:00 AM EDT Patient has never smoked co mpleted Patient has never smoked [facility] ([facility] Vital Signs ID Date Data Source UNK Name Value Range Interpretation Code Description Data Source(s) Systolic blood pressure 112 mm[Hg] 112 mm[Hg] M [facility] ([facility]) Diastolic blood pressure 72 mm[Hg] 72 mm[Hg] [facility] ([facility]) Body temperature 98.3 [degF] 98.3 [degF] [facility] ([facility]) Body height 70 [in_i] 70 [in_i] [facility] ([facility]) 5'10" Body weight 278.00 [lb_av] 278.00 [lb_av] [facility] T ([facility]) Body mass index (BMI) [Ratio] 39.9 kg/m2 39.9 k g/m2 [facility] Baker body weight 166 [lb_av] 166 [lb_av] [facility] T ([facility]) Body weight 126.101 kg 126.101 kg [facility] Body surface area Derived from formula 2.40 m2 2.40 m2 [facility] ([facility]) Heart rate 75 /min 75 /min [facility] Body temperature 97.0 [degF] 97.0 [degF] [facility] Systolic blood pressure 128 mm[Hg] 128 mm[Hg] M [facility] ([facility] Diastolic blood pressure 70 mm[Hg] 70 mm[Hg] [facility] Respiratory rate 17 /min 17 /min [facility] ( [facility] Body height 70 [in_i] 70 [in_i] [facility] 5'10" Body weight 277.25 [lb_av] 277.25 [lb_av] [facility] T ([facility] Oxygen saturation in Arterial blood by Pulse oximetry 98 % 98 % [facility] Baker body weight 166 [lb_av] 166 [lb_av] [facility] T ([facility] Body mass index (BMI) [Ratio] 39.8 kg/m2 39.8 k g/m2 [facility] Body mass index (BMI) [Ratio] 39.0 kg/m2 39.0 k g/m2 [facility] Heart rate 67 /min 67 /min [facility] Body temperature 97.6 [degF] 97.6 [degF] [facility] Respiratory rate 16 /min 16 /min [facility] ( [facility] Body height 70 [in_i] 70 [in_i] [facility] 5'10" Body weight 272.12 [lb_av] 272.12 [lb_av] [facility] T ([facility] Oxygen saturation in Arterial blood by Pulse oximetry 98 % 98 % [facility] Baker body weight 166 [lb_av] 166 [lb_av] [facility] T ([facility] Systolic blood pressure 123 mm[Hg] 123 mm[Hg] M [facility] Diastolic blood pressure 77 mm[Hg] 77 mm[Hg] [facility]
--- NOTE | 2021-09-15 11:28 | ROOR ---
Patient Name: Tee Page Procedure Date: 09/15/2021 11:04 AM Date of : 1970 Age: 51 Room: [facility] Gender: Male Note Status: Finalized Procedure: Colonoscopy Indications: Screening for colorectal malignant neoplasm Providers: DO Arun Mehta MD: Thania Carrera NP Requesting Provider: Medicines: Propofol per Anesthesia Complications: No immediate complications. Procedure: Pre-Anesthesia Assessment: - Prior to the procedure, a History and Physical was performed, and patient medications and allergies were reviewed. The patient is competent. The risks and benefits of the procedure and the sedation options and risks were discussed with the patient. All questions were answered and informed consent was obtained. Patient identification and proposed procedure were verified by the physician, the nurse, the anesthesiologist and the voice and data technician in the endoscopy suite. Mental Status Examination: alert and oriented. Airway Examination: normal oropharyngeal airway and neck mobility. Respiratory Examination: clear to auscultation. CV Examination: normal. Prophylactic Antibiotics: The patient does not require prophylactic antibiotics. Prior Anticoagulants: The patient has taken no previous anticoagulant or antiplatelet agents. ASA Grade Assessment: II - A patient with mild systemic disease. After reviewing the risks and benefits, the patient was deemed in satisfactory condition to undergo the procedure. The anesthesia plan was to use monitored anesthesia care (MAC). Immediately prior to administration of medications, the patient was re-assessed for adequacy to receive sedatives. The heart rate, respiratory rate, oxygen saturations, blood pressure, adequacy of pulmonary ventilation, and response to care were monitored throughout the procedure. The physical status of the patient was re-assessed after the procedure. The Colonoscope was introduced through the anus and advanced to the cecum, identified by appendiceal orifice and ileocecal valve. The colonoscopy was performed without difficulty. The patient tolerated the procedure well. Findings: Non-bleeding internal hemorrhoids were found during retroflexion. The hemorrhoids were small and Grade I (internal hemorrhoids that do not prolapse). A less than 5 mm polyp was found in the rectum. The polyp was hyperplastic. The polyp was removed with a jumbo cold forceps. Resection and retrieval were complete. Estimated blood loss was minimal. A single small-mouthed diverticulum was found in the sigmoid colon. Impression: - Non-bleeding internal hemorrhoids. - One less than 5 mm polyp in the rectum, removed with a jumbo cold forceps. Resected and retrieved. Recommendation: - Patient has a contact number available for emergencies. The signs and symptoms of potential delayed complications were discussed with the patient. Return to normal activities tomorrow. Written discharge instructions were provided to the patient. - Repeat colonoscopy in 3 - 5 years for surveillance based on pathology results. - Return to physician campaign assistant at appointment to be scheduled. Procedure Code(s): --- Professional --- 89734, Colonoscopy, flexible; with biopsy, single or multiple Diagnosis Code(s): --- Professional --- Z12.11, Encounter for screening for malignant neoplasm of colon K64.0, First degree hemorrhoids K62.1, Rectal polyp CPT copyright 2019 [employer]. All rights reserved. The codes documented in this report are preliminary and upon orthopedic coder review may be revised to meet current compliance requirements. Piotr Walls DO 09/15/2021 11:27:41 AM Electronically signed by Piotr Walls DO Number of Addenda: 0 Note Initiated On: 09/15/2021 11:04 AM Estimated Blood Loss: Estimated blood loss was minimal.
[2021-09-15 12:00] VITALS: BP 140/83
[2021-09-15] MEDS ORDERED: propofoL 500 MG/50 ML VIAL As Ordered ONE (12:18)
[2021-09-15] MEDS ORDERED: LIDOCAINE 2% 100MG/5ML SDV (FOR ANES.) As Ordered ONE (12:18)
== END 2021-09-15 12:08 | disposition home or self-care (01) ==
LOC: M OPP 09:40
PROVIDERS: ATTEND Surgery
DX: K62.1 Rectal polyp (principal); K64.0 First degree hemorrhoids; Z12.11 Encounter for screening for malignant neoplasm of colon

== ENCOUNTER → 2021-12-03 | Outpatient (CLI) | payer BC ==
[~2021-12-03] MED LIST changes: -NS 1,000 ML IV ONE
== END ==
LOC: M PLAIMG 09:00
PROVIDERS: ATTEND Orthopaedic Surgery
DX: M25.531 Pain in right wrist (principal)

== ENCOUNTER → 2022-01-06 | Outpatient (CLI) | payer BC | LOC: M PLAIMG 10:37 | PROVIDERS: ATTEND Physician Assistant | DX: M17.12 Unilateral primary osteoarthritis, left knee (principal) ==

== ENCOUNTER 2022-04-04 09:52 | Emergency (ER) | payer BC ==
[~2022-04-04] VITALS: Ht 177.8 cm; Wt 124.5 kg
[2022-04-04] MEDS ORDERED: TRAM50TA2 PO (10:33)
[2022-04-04] MEDS ORDERED: NAPR220C14 PO (10:33)
[2022-04-04] MEDS ORDERED: KETOROLAC 30 MG/ML 1ML VIAL IM ONE (11:25)
[2022-04-04] MEDS ORDERED: diazePAM 5MG TABLET PO ONE (11:25)
[2022-04-04] MEDS ORDERED: METH-1164 PO (11:44)
[2022-04-04 11:53] VITALS: BP 156/86
== END 2022-04-04 12:17 | disposition home or self-care (01) ==
LOC: M ED 09:52
DX: S16.1XXA Strain of muscle, fascia and tendon at neck level, initial encounter (principal); X58.XXXA Exposure to other specified factors, initial encounter; Y92.9 Unspecified place or not applicable; Y93.9 Activity, unspecified; Y99.9 Unspecified external cause status; M43.02 Spondylolysis, cervical region; R00.1 Bradycardia, unspecified; M25.78 Osteophyte, vertebrae; I10 Essential (primary) hypertension; Z79.82 Long term (current) use of aspirin; Z79.899 Other long term (current) drug therapy
CPT/HCPCS: 36415; 72125; 84484; 93005; 96372; 99284; J1885

== ENCOUNTER → 2024-01-17 | Outpatient (CLI) | payer BC ==
[~2024-01-17] MED LIST changes: +METH-1164 PO; +NAPR220C14 PO; +TRAM50TA2 PO
[2024-01-17 12:30] LABS: ALBUMIN 3.9 G/DL (3.2-5.2); ALKALINE PHOSPHATASE 69 U/L (46-116); ALT/SGPT 51 U/L (7.0-40); AST/SGOT 23 U/L (<34); BILIRUBIN,TOTAL 0.6 MG/DL (0.3-1.2); BLOOD UREA NITROGEN 19 MG/DL (9-23); CALCIUM LEVEL 8.4 MG/DL (8.5-10.1); CARBON DIOXIDE LEVEL 27 MMOL/L (20-31); CHLORIDE LEVEL 105 MMOL/L (98-107); CHOLESTEROL LEVEL 130 MG/DL (<200); CHOLESTEROL RISK RATIO 3.51 (<5); CREATININE FOR GFR 0.78 MG/DL (0.70-1.30); GLOMERULAR FILTRATION RATE > 60.0 (>56); GLUCOSE, FASTING 105 MG/DL (60-100); LDL CHOLESTEROL 68.4 MG/DL (<100); POTASSIUM SERUM 4.5 MMOL/L (3.5-5.1); SODIUM LEVEL 140 MMOL/L (136-145); TOTAL PROTEIN 7.3 G/DL (5.7-8.2); TRIGLYCERIDES LEVEL 123 MG/DL (<150)
== END ==
LOC: M WUC 08:50
PROVIDERS: ATTEND Nurse Practitioner Family
DX: I10 Essential (primary) hypertension (principal); E78.2 Mixed hyperlipidemia

== ENCOUNTER → 2024-01-17 | Outpatient (CLI) | payer BC | LOC: M WUC 08:52 | PROVIDERS: ATTEND Physician Assistant | DX: S60.121A Contusion of right index finger with damage to nail, initial encounter (principal); W18.30XA Fall on same level, unspecified, initial encounter; Y92.009 Unspecified place in unspecified non-institutional (private) residence as the place of occurrence of the external cause ==

== ENCOUNTER 2024-04-10 08:14 | Day surgery (SDC) | payer OTHER ==
[~2024-04-10] VITALS: Ht 177.8 cm; Wt 125.6 kg
[~2024-04-10 08:14] MED LIST changes: +METO200T15 PO; -METO200T28 PO
[2024-04-10] MEDS ORDERED: propofoL 500 MG/50 ML VIAL As Ordered ONE (09:08)
[2024-04-10 09:10] VITALS: TEMP 99.1
[2024-04-10 09:35] VITALS: BP 136/78; O2SAT 99
== END 2024-04-10 09:50 | disposition home or self-care (01) ==
LOC: M OPP 08:14
PROVIDERS: ATTEND Surgery
DX: Z12.11 Encounter for screening for malignant neoplasm of colon (principal); K64.0 First degree hemorrhoids; K57.30 Diverticulosis of large intestine without perforation or abscess without bleeding; I10 Essential (primary) hypertension; Z79.02 Long term (current) use of antithrombotics/antiplatelets; Z79.82 Long term (current) use of aspirin; Z79.899 Other long term (current) drug therapy

== ENCOUNTER → 2025-02-27 | Outpatient (CLI) | payer OTHER ==
[2025-02-27 14:35] LABS: BASO % 0.5 % (0.0-1.0); EOS # 0.1 10^3/uL (0.0-0.5); EOS % 0.8 % (0.0-3.0); HEMATOCRIT 46.7 % (42.0-52.0); HEMOGLOBIN 14.8 g/dl (13.5-17.5); LYMPH % 33.4 % (24.0-44.0); MEAN CORPUSCULAR HEMOGLOBIN 28.4 pg (27.0-33.0); MEAN CORPUSCULAR HGB CONC 31.7 g/dl (32.0-36.5); MEAN CORPUSCULAR VOLUME 89.5 fl (80.0-96.0); MONO # 0.5 10^3/uL (0.0-0.8); MONO % 8.4 % (2.0-8.0); NEUTROPHILS # 3.4 10^3/uL (1.5-8.5); NEUTROPHILS % 56.7 % (36.0-66.0); PLATELET COUNT, AUTOMATED 261 10^3/uL (150-450); RED BLOOD COUNT 5.22 10^6/uL (4.30-6.10); WHITE BLOOD COUNT 6.1 10^3/uL (4.0-10.0)
[2025-02-27 14:40] LABS: IRON (FE) 111 UG/DL (65-175); PERCENT SATURATION 33.1 % (19.7-50.0); TOTAL IRON BINDING CAPACITY 335 UG/DL (250-425)
[2025-02-27 14:41] LABS: ALBUMIN 3.9 G/DL (3.2-5.2); ALKALINE PHOSPHATASE 67 U/L (40-129); ALT/SGPT 53 U/L (7.0-40); AST/SGOT 23 U/L (<34); BILIRUBIN,TOTAL 0.8 MG/DL (0.3-1.2); BLOOD UREA NITROGEN 13 MG/DL (9-23); CARBON DIOXIDE LEVEL 27 MMOL/L (20-31); CHLORIDE LEVEL 106 MMOL/L (98-107); CREATININE FOR GFR 0.76 MG/DL (0.70-1.30); GLOMERULAR FILTRATION RATE > 90.0 (>56); GLUCOSE, FASTING 109 MG/DL (60-100); POTASSIUM SERUM 4.8 MMOL/L (3.5-5.1); SODIUM LEVEL 141 MMOL/L (136-145); THYROID STIMULATING HORMONE 2.402 uIU/ML (0.55-4.78); TOTAL PROTEIN 7.1 G/DL (5.7-8.2)
[2025-02-27 14:42] LABS: FERRITIN 92.4 NG/ML (10.5-307.3); FREE T4 1.24 NG/DL (0.89-1.76); TOTAL 25(OH) VITAMIN D 39.4 NG/ML (20.0-100.0)
[2025-02-27 14:57] LABS: HEMOGLOBIN A1c 5.5 % (4.0-6.0)
== END ==
LOC: M WUC 10:57
PROVIDERS: ATTEND Nurse Practitioner Family
DX: I10 Essential (primary) hypertension (principal); R53.83 Other fatigue; R73.01 Impaired fasting glucose